=== PATIENT | female | born 1955 | race Caucasian/White ===

== ENCOUNTER 2017-04-21 06:57 | Inpatient (IN) | payer OTHER ==
[2017-04-21] MEDS ORDERED: NS 0.9% 1000 ML* 1,000 ML IV ONE (07:32)
[2017-04-21] MEDS ORDERED: Ondansetron INJ* 2 MG/ML VIAL IV ONE (07:32)
[2017-04-21] MEDS ORDERED: HYDROmorphone* 1 MG/ML 1 ML SYR IV ONE ×2 (07:32→11:07)
[2017-04-21 07:55] LABS: Hematocrit 31 % (35-47); Hemoglobin 10.2 g/dl (12.0-16.0); Mean Corpuscular HGB Conc 33 g/dl (31-36); Mean Corpuscular Hemoglobin 31 pg (27-31); Mean Corpuscular Volume 95 fL (80-97); Mean Platelet Volume 6 um3 (7.4-10.4); Red Blood Count 3.25 10^6/ul (4.0-5.4); Red Cell Distribution Width 14 % (10.5-15); White Blood Count 13.9 10^3/ul (3.5-10.8)
[2017-04-21 08:17] LABS: Albumin 2.3 g/dL (3.2-5.2); C Reactive Protein 163.69 mg/L (< 5.00); Calcium 7.9 mg/dL (8.6-10.3); EGFR African American 151.8 (>60); EGFR Non-African American 118.1 (>60); Globulin 4.8 g/dL (2-4); Potassium 3.5 mmol/L (3.5-5.0); Total Bilirubin 0.7 mg/dL (0.2-1.0); Total Protein 7.1 g/dL (6.4-8.9)
[2017-04-21 08:19] LABS: Troponin I 0.01 ng/mL (<0.04)
--- NOTE | 2017-04-21 09:02 | RAD ---
HISTORY: Cough COMPARISONS: March 31, 2017 VIEWS: 2: Frontal and lateral views of the chest. FINDINGS: CARDIOMEDIASTINAL SILHOUETTE: The cardiomediastinal silhouette is normal. Again noted is an esophageal stent. PIERRE: The pierre are normal. PLEURA: There is a small right pleural effusion. LUNG PARENCHYMA: The lungs are clear. ABDOMEN: The upper abdomen is clear. There is no subphrenic gas. BONES AND SOFT TISSUES: Mild degenerative changes are noted. OTHER: A right-sided chest port is noted with the tip overlying the cavoatrial junction. IMPRESSION: 1. SMALL RIGHT PLEURAL EFFUSION. 2. LINES AND TUBES ABOVE.
[2017-04-21] MEDS ORDERED: Iohexol 300* (CONTRAST) 10 ML SDV IV ONE (10:25)
--- NOTE | 2017-04-21 11:26 | RAD ---
Indication: Mid upper back pain. Contrast: 65 mL of Omnipaque 300 CT of the chest, abdomen and pelvis was performed after oral and IV contrast administration. Coronal and sagittal reconstructed images were obtained. Inferior thyroid lobes are unremarkable. Right-sided central line is in place. No mediastinal or hilar adenopathy is noted. Esophageal stent is in place. Heart demonstrates no pericardial effusion. Bilateral pleural effusions are present. The lung vogt demonstrate bibasilar atelectasis. Some scarring is noted in the anterior right upper lobe. No focal nodules are identified. There is compression fracture of the superior endplate of T2 with kyphosis deformity at T1-T2 which was not present on March 11, 2017. CT of the abdomen and pelvis demonstrates the liver to be normal in size. No focal lesions or intrahepatic ductal dilatation is noted. The gallbladder demonstrates no calcified gallstones. The pancreas demonstrates no mass or pancreatic duct dilatation. The common duct is not dilated. The spleen is normal in size. No adrenal lesions are noted. No dilated loops of bowel are noted. Atherosclerotic aorta is noted. Small bowel and colon are otherwise unremarkable. Trace amount of free fluid is noted in the pelvis. The urinary bladder is otherwise unremarkable. IMPRESSION: KYPHOSIS DEFORMITY AT T1-T2 WITH LIKELY COMPRESSION FRACTURE OF THE SUPERIOR ENDPLATE OF T2 WHICH WAS NOT PRESENT ON PRIOR EXAM. OSTEOPENIA IS NOTED. PATIENT STATUS POST ESOPHAGEAL STENT PLACEMENT. THERE IS BILATERAL PLEURAL EFFUSION WITH BIBASILAR ATELECTASIS NOTED. THE REMAINDER OF THE EXAM IS UNCHANGED FROM MARCH 11, 2017.
[2017-04-21] MEDS ORDERED: Polyethylene Glycol 3350* 17 GM PACKET PO PRN (11:44)
[2017-04-21] MEDS ORDERED: Ondansetron TAB* 4 MG PO PRN (11:44)
[2017-04-21] MEDS ORDERED: Zosyn per Pharmacy* NOTE FOLLOW UP SCH (12:00)
[2017-04-21 13:18] LABS: Urine Bacteria Absent (Absent); Urine Bilirubin Negative (Negative); Urine Glucose Negative (Negative); Urine Nitrite Negative (Negative)
[2017-04-21] MEDS ORDERED: fentaNYL PATCHs 100 MCG/HR TRANSDERM SCH (14:00)
--- NOTE | 2017-04-21 14:30 | ED ---
Chente King Benjamin, scribed for Juanjose Andrews MD on 04/21/17 at 0812 . Back Pain - HPI Summary HPI Summary: 61yo female with esophageal CA presents with chronic mid upper back pain that has gotten worse today. Pt has an esophageal stent placed in 1 year ago that was adjusted on 04/06 at [facility]. Since then, pt had been having pain in her shoulder blades that is now in mid upper back pain. Pt has been controlling her pain with morphine, Xanax, and fentanyl patch, but pain is now out of control. Pt was seen with Dr. Gong prior to adjustment, which CXR was negative. Pt also has an appointment with Dr. Gong later today. Pt also has been coughing up pink sputum. - History of Current Complaint Chief Complaint: EDBackInjuryPain Stated Complaint: BACK PAIN Time Seen by Provider: 04/21/17 07:20 Hx Obtained From: Patient, Family/Academic Support Director - daughter Onset/Duration: Gradual Onset, Lasting Weeks, Still Present, Worse Since - today Onset/Duration: Atraumatic, Still Present Timing: Constant Back Pain Location: Is Discrete @ - mid upper back Severity Initially: Moderate Severity Currently: Severe Pain Intensity: 10 Pain Scale Used: 0-10 Numeric Aggravating Symptom(s): Movement Alleviating Symptom(s): Nothing Associated Signs And Symptoms: Positive: Other - pink sputum - Allergies/Home Medications Allergies/Adverse Reactions: Allergies Allergy/AdvReac Type Severity Reaction Status Date / Time Hydrocodone Allergy Severe Nausea And Verified 04/21/17 07:11 Vomiting Oxycodone Allergy Severe Nausea And Verified 04/21/17 07:11 Vomiting Home Medications: Home Medications Fentynal Patch 100 mcg TRANSDERM SEE INSTRUCTIONS 04/21/17 [History Confirmed ] PMH/Surg Hx/FS Hx/Imm Hx Endocrine/Hematology History: Denies: Hx Diabetes, Hx Systemic Lupus Erythematosus Cardiovascular History: Reports: Other Cardiovascular Problems/Disorders - MEDIPORT PLACED AUG 2015 Denies: Hx Hypertension GI History: Reports: Hx Gastroesophageal Reflux Disease, Other GI Disorders - Esophogeal cancer History: Denies: Hx Dialysis, Hx Renal Disease Musculoskeletal History: Reports: Hx Back Problems - 20 years ago Denies: Hx Rheumatoid Arthritis Sensory History: Reports: Hx Contacts or Glasses Opthamlomology History: Reports: Hx Contacts or Glasses Psychiatric History: Reports: Hx Anxiety - Cancer History Cancer Type, Location and Year: Esophageal cancer 07/11 Hx Chemotherapy: Yes Hx Radiation Therapy: Yes Hx Palliative Cancer Treatment: No - Surgical History Surgery Procedure, Year, and Place: fallopian tubal ligation 1986. Esophageal stent placed - September 2015. PEG tube - August 2015 Hx Anesthesia Reactions: No Infectious Disease History: No Infectious Disease History: Denies: Traveled Outside the [place] in Last 30 Days - Family History Known Family History: Positive: Other - breast CA - Social History Occupation: Unemployed Lives: With Family Alcohol Use: Occasionally Alcohol Amount: "glass of wine here and there" Substance Use Type: Reports: Marijuana Hx Tobacco Use: Yes Smoking Status (MU): Former Smoker Type: Cigarettes Review of Systems Constitutional: Negative Eyes: Negative ENT: Negative Cardiovascular: Negative Positive: Cough - pink sputum Gastrointestinal: Negative Genitourinary: Negative Positive: Arthralgia - mid upper back pain Skin: Negative Neurological: Negative Psychological: Normal All Other Systems Reviewed And Are Negative: Yes Physical Exam Triage Information Reviewed: Yes Vital Signs On Initial Exam: Initial Vitals BP 144/96 04/21/17 07:08 Vital Signs Reviewed: Yes Appearance: Positive: Well-Appearing, Well-Nourished, Pain Distress - moderate Skin: Positive: Warm, Skin Color Reflects Adequate Perfusion, Dry Head/Face: Positive: Normal Head/Face Inspection Eyes: Positive: Normal ENT: Positive: Normal ENT inspection Neck: Positive: Supple, Nontender Respiratory/Lung Sounds: Positive: Other - diffuse crackles Cardiovascular: Positive: Tachycardia Abdomen Description: Positive: Nontender, Soft Bowel Sounds: Positive: Present Musculoskeletal: Positive: Normal, Strength/ROM Intact Neurological: Positive: Normal, Sensory/Motor Intact, Alert, Oriented to Person Place, Time, CN Intact II-III Psychiatric: Positive: Affect/Mood Appropriate - [place] Coma Scale Coma Scale Total: 15 Diagnostics - Vital Signs Vital Signs Temp Pulse Resp BP Pulse Ox 04/21/17 07:09 98.5 F 108 18 144/96 96 04/21/17 07:08 144/96 - Laboratory Lab Results: Lab Results 04/21/17 04/21/17 04/21/17 Range/Units 07:45 07:45 07:45 WBC 13.9 H (3.5-10.8) 10^3/ul RBC 3.25 L (4.0-5.4) 10^6/ul Hgb 10.2 L (12.0-16.0) g/dl Hct 31 L (35-47) % MCV 95 (80-97) fL MCH 31 (27-31) pg MCHC 33 (31-36) g/dl RDW 14 (10.5-15) % Plt Count 402 (150-450) 10^3/ul MPV 6 L (7.4-10.4) um3 Neut % (Auto) 90.8 H (38-83) % Lymph % (Auto) 3.9 L (25-47) % [place] % (Auto) 4.6 (1-9) % Eos % (Auto) 0.1 (0-6) % Baso % (Auto) 0.6 (0-2) % Absolute Neuts (auto) 12.7 H (1.5-7.7) 10^3/ul Absolute Lymphs (auto) 0.5 L (1.0-4.8) 10^3/ul Absolute Monos (auto) 0.6 (0-0.8) 10^3/ul Absolute Eos (auto) 0 (0-0.6) 10^3/ul Absolute Basos (auto) 0.1 (0-0.2) 10^3/ul Absolute Nucleated RBC 0 10^3/ul Nucleated RBC % 0 INR (Anticoag Therapy) 1.06 (0.89-1.11) Sodium 129 L (133-145) mmol/L Potassium 3.5 (3.5-5.0) mmol/L Chloride 96 L (101-111) mmol/L Carbon Dioxide 25 (22-32) mmol/L Anion Gap 8 (2-11) mmol/L BUN 9 (6-24) mg/dL Creatinine 0.53 (0.51-0.95) mg/dL Est GFR ( Amer) 151.8 (>60) Est GFR (Non-Af Amer) 118.1 (>60) BUN/Creatinine Ratio 17.0 (8-20) Glucose 135 H (70-100) mg/dL Calcium 7.9 L (8.6-10.3) mg/dL Total Bilirubin 0.70 (0.2-1.0) mg/dL AST 10 L (13-39) U/L ALT 7 (7-52) U/L Alkaline Phosphatase 110 H (34-104) U/L Troponin I 0.01 (<0.04) ng/mL C-Reactive Protein 163.69 H (< 5.00) mg/L Total Protein 7.1 (6.4-8.9) g/dL Albumin 2.3 L (3.2-5.2) g/dL Globulin 4.8 H (2-4) g/dL Albumin/Globulin Ratio 0.5 L (1-3) Result Diagrams: 04/21/17 07:45 04/21/17 07:45 Lab Statement: Any lab studies that have been ordered have been reviewed, and results considered in the medical decision making process. - Radiology CXR Xray Interpretation: Positive (See Comments) - small right pleural effusion Radiology Interpretation Completed By: Radiologist - CT CT C/A/P W CT Interpretation: Positive (See Comments) - IMPRESSION: KYPHOSIS DEFORMITY AT T1-T2 WITH LIKELY COMPRESSION FRACTURE OF THE SUPERIOR ENDPLATE OF T2 WHICH WAS NOT PRESENT ON PRIOR EXAM. OSTEOPENIA IS NOTED. PATIENT STATUS POST ESOPHAGEAL STENT PLACEMENT. THERE IS BILATERAL PLEURAL EFFUSION WITH BIBASILAR ATELECTASIS NOTED. THE REMAINDER OF THE EXAM IS UNCHANGED FROM MARCH 11, 2017. CT Interpretation Completed By: Radiologist Back Pain Course/Dx - Course Course Of Treatment: Discussed with Dr. Gong (oncology) at 0943. Assessment/Plan: Ms. Tirado presented with severe upper back pain for a few weeks but . She also has had a cough that has been W/U'd by Dr. Gong. She is now productive of blood tinged sputum. She was found to have a new pleural effusion and a new dorsal compression fracture. Dr. Gong has admitted her to the hospital. - Diagnoses Provider Diagnoses: Compression fracture of body of thoracic vertebra, Pleural effusion Discharge - Discharge Plan Condition: Stable Disposition: ADMITTED TO [facility] The documentation as recorded by the Chente garcia Benjamin accurately reflects the service I personally performed and the decisions made by me, Juanjose Andrews MD.
[2017-04-21] MEDS: NS 0.9% 1000 ML* 1,000 ML IV SCH (14:38)
[2017-04-21] MEDS: HYDROmorphone* 1 MG/ML 1 ML SYR IV SLOW PU PRN ×2 (15:45→19:54)
[2017-04-21] MEDS ORDERED: Senna TAB PO PRN (18:53)
[2017-04-21] MEDS: fentaNYL Patch Check Q Shift 1 NOTE SCH (19:34)
[2017-04-21] MEDS: ZOSYN 3.375 GM Q8H per EXTENDED INFUSION IVPB SCH ×2 (19:55)
--- NOTE | 2017-04-21 19:56 | RAD ---
INDICATION: Further characterize proximal thoracic spine fracture noted on April 21, 2017 CT chest. COMPARISON: April 21, [address] and March 11, [address] TECHNIQUE: Multidetector CT images foramen magnum to lung apices without contrast. Multiplanar reformation. REPORT: 1.5 mm degenerative C7-T1 anterolisthesis. Focal kyphosis at the proximal thoracic spine due to moderately severe impaction fracture involving the T1 and T2 vertebral bodies with complete obliteration of the intervening disc space new compared with the March 11, 2017 exam. Surrounding paravertebral soft tissue edema without change compared with the earlier exam of the same date however new compared with the March 11, 2017 exam. Foci of osteolysis at the costovertebral segments of the bilateral second ribs. The focal kyphosis and minimal dorsal protrusion of the superior endplate of T2 results in only mild impression on the ventral margin of the thecal sac. Assessment of the central canal contents is limited with CT particularly without IV contrast. Negative for additional thoracic spine or cervical spine fracture within the [id number]. Multilevel degenerative spondylosis with moderate C3-C4, moderate C4-C5, moderately severe C5-C6 and mild C6-C7 disc space narrowing as well as vertebral endplate osteophytosis and uncinate process spurring and facet joint osteoarthritis. At C3-C4 there is mild RIGHT foraminal stenosis. At C4-C5 there is moderate bilateral foraminal stenosis. At C5-C6 there is moderate bilateral foraminal stenosis. At C6-C7 there is mild bilateral foraminal stenosis. Esophageal stent in place with proximal margin at the level of the C7-T1. IMPRESSION: The constellation is of findings may represent osteomyelitis discitis at T1-T2 with associated paravertebral phlegmon. The differential also includes insufficiency fracture secondary to metastatic disease from esophageal cancer or insufficiency fracture secondary to prior radiation. Correlate with clinical assessment and inflammatory markers. Pre and postcontrast MRI may be helpful for further assessment. Results discussed with Dr. Olivas 04/21/2017 7:50 PM EDT
[2017-04-22] MEDS: HYDROmorphone* 1 MG/ML 1 ML SYR IV SLOW PU PRN ×4 (01:54→18:22)
[2017-04-22] MEDS: ZOSYN 3.375 GM Q8H per EXTENDED INFUSION IVPB SCH ×2 (03:58)
[2017-04-22] MEDS: ALPRAZolam TAB* 0.5 MG PO PRN ×3 (04:05→19:17)
[2017-04-22] MEDS ORDERED: HYDROmorphone* 2 MG/ML 1 ML SYR ONE (04:14)
[2017-04-22] MEDS: NS 0.9% 1000 ML* 1,000 ML IV SCH (04:58)
[2017-04-22] MEDS ORDERED: HYDROmorphone* 2 MG/ML 1 ML SYR IV ONE ×2 (05:00→05:20)
[2017-04-22] MEDS: fentaNYL Patch Check Q Shift 1 NOTE SCH (07:14)
[2017-04-22] MEDS ORDERED: Morphine INJ* 10 MG/ML 1 ML SYRINGE IV ONE (08:00)
[2017-04-22] MEDS ORDERED: Citalopram TAB* 20 MG PO SCH (09:00)
--- NOTE | 2017-04-22 09:40 | CONSULT ---
Consult Consult: Neurosurgery Consult Date of consult: 04/22/17 Reason for consult: T1 and T2 fractures Referring provider: MARQUEZ Masters HPI: This is a 61 year old female with past medical history significant for esophageal cancer who [place] [facility] with complaint of back pain. She states that she has been experiencing worsening mid to upper back pain for the past 2-3 weeks with radiation to the bilateral axilla and shoulders. She denies numbness, tingling or weakness of the upper extremities. She was initially able to control the pain with morphine that she takes at home but in the past few days, the pain has been uncontrolled. She also reports approximate 10 pound weight loss recently, chills and sputum production which has been blood tinged but is currently yellow colored. She denies fever, dizziness, headache, neck pain, chest pain, nausea, vomiting, diarrhea and incontinence. Past medical history: 1. Esophageal cancer 2. GERD Past surgical history: 1. Esophageal stent placement in September 2015 with revision on 04/06/17 in [place]. 2. PEG tube placement 08/2015 3. Tubal ligation Social history: She lives at home with her family. She is a former smoker and currently consumes occasional alcohol. Home medications: 1. ALPRAZolam TAB* [Xanax TAB*] 0.25 - 0.5 mg PO Q8H PRN 02/10/16 [History Confirmed 04/21/17] 2. Morphine ORAL CONCENTRATE* 40 mg PO Q6H 02/10/16 [History Confirmed 04/21/17] 3. Polyethylene Glycol 3350* [Miralax*] 17 gm PO EVERY OTHER DAY PRN #0 packet 02/21/16 [Rx Confirmed 04/21/17] 4. Lexapro 10 mg PO DAILY 06/17/16 [History Confirmed 04/21/17] 5. Ondansetron HCl [Zofran 4 MG TAB] 4 mg PO Q4H PRN 06/17/16 [History Confirmed 04/21/17] 6. Morphine ORAL CONCENTRATE* 40 mg PO Q4H PRN #180 oral.syrin MDD 240 mg [Rx Confirmed 04/21/17] 7. Fentynal Patch 100 mcg TRANSDERM SEE INSTRUCTIONS 04/21/17 [History Confirmed 04/21/17] Allergies: 1. Hydrocodone 2. Oxycodone ROS: Full ROS completed; pertinent findings stated in HPI and all others negative. Physical exam: Vital Signs: Temp Pulse Resp BP Pulse Ox 97.8 F 99 20 152/74 93 04/22/17 03:28 04/22/17 03:28 04/22/17 09:00 04/22/17 04:55 04/22/17 03:28 General: Alert and oriented. Laying in bed uncomfortably with significant pain. HEENT: Head is normocephalic and atraumatic. PERRL, EOMI, sclerae anicteric. Gross hearing intact. Moist mucus membranes. Neck: Supple, symmetric and nontender. CV: Radial pulses 2+ and equal. Pedal pulses palpable. Lungs: Breathing is nonlabored. Rhonchi bilaterally. Production of yellow colored sputum with cough. Abdomen: Normoactive bowel sounds. Abdomen is flat, nontender and nondistended. Neuro: Speech is clear and coherent. CN II-XII intact. Strength in bilateral upper extremities is 5/5. Sensation intact. Negative Hoffmans bilaterally. Extremities: Full ROM. No edema. Imagin. CT of the cervical spine on 04/21/17 shows fracture of T1 and T2. Assessment: This is a 61 year old female with history of esophageal cancer who presented with uncontrolled mid to upper back pain for the past 2-3 weeks. Fracture of T1 and T2 shown on CT cervical spine. Unable to determine etiology of the fractures. This case was discussed with Dr. Olivas and he has discussed with Dr. White. Plan: 1. Transfer to [facility] in [place] for further evaluation and higher level of care.
[2017-04-22] MEDS ORDERED: HYDROmorphone* 2 MG/ML 1 ML SYR IV SLOW PU ONE (09:55)
--- NOTE | 2017-04-22 09:55 | PN ---
Progress Note - Progress Note Date of Service: 04/22/17 SOAP: Subjective: severe pain this am. does not feel that the dilaudid is helping enough. she does report several 2-3 weeks of chills and anorexia with 10 pound weight loss and pain in her mid back that has worsened with time. no maddie fevers but did not take her temperature. no weakness or numbness of hands or feet, though she does have a weird sensation in both axilla. +cough (not new) but hurts her chest to cough. Objective: Vital Signs Temp Pulse Resp BP Pulse Ox 97.8 F 99 20 152/74 93 04/22/17 03:28 04/22/17 03:28 04/22/17 09:00 04/22/17 04:55 04/22/17 03:28 uncomfortable appearing lying at a 30 degree angle diffuse rhonchi (upper airway sounds) s1 s2 nl soft nt +bs no le edema did not ambulate but strength grossly intact skin intact port clean no adenopathy A+O x 3 Laboratory Tests 04/21/17 04/21/17 04/21/17 07:45 07:45 07:45 WBC 13.9 H RBC 3.25 L Hgb 10.2 L Hct 31 L MCV 95 MCH 31 MCHC 33 RDW 14 Plt Count 402 MPV 6 L Neut % (Auto) 90.8 H Lymph % (Auto) 3.9 L [place] % (Auto) 4.6 Eos % (Auto) 0.1 Baso % (Auto) 0.6 Absolute Neuts (auto) 12.7 H Absolute Lymphs (auto) 0.5 L Absolute Monos (auto) 0.6 Absolute Eos (auto) 0 Absolute Basos (auto) 0.1 Absolute Nucleated RBC 0 Nucleated RBC % 0 INR (Anticoag Therapy) 1.06 Sodium 129 L Potassium 3.5 Chloride 96 L Carbon Dioxide 25 Anion Gap 8 BUN 9 Creatinine 0.53 Est GFR ( Amer) 151.8 Est GFR (Non-Af Amer) 118.1 BUN/Creatinine Ratio 17.0 Glucose 135 H Lactic Acid Calcium 7.9 L Total Bilirubin 0.70 AST 10 L ALT 7 Alkaline Phosphatase 110 H Troponin I 0.01 C-Reactive Protein 163.69 H Total Protein 7.1 Albumin 2.3 L Globulin 4.8 H Albumin/Globulin Ratio 0.5 L Urine Color Urine Appearance Urine pH Ur Specific [place] Urine Protein Urine Ketones Urine Blood Urine Nitrate Urine Bilirubin Urine Urobilinogen Ur Leukocyte Esterase Urine WBC (Auto) Urine RBC (Auto) Ur Squamous Epith Cells Urine Bacteria Urine Glucose 04/21/17 04/21/17 13:00 13:22 WBC RBC Hgb Hct MCV MCH MCHC RDW Plt Count MPV Neut % (Auto) Lymph % (Auto) [place] % (Auto) Eos % (Auto) Baso % (Auto) Absolute Neuts (auto) Absolute Lymphs (auto) Absolute Monos (auto) Absolute Eos (auto) Absolute Basos (auto) Absolute Nucleated RBC Nucleated RBC % INR (Anticoag Therapy) Sodium Potassium Chloride Carbon Dioxide Anion Gap BUN Creatinine Est GFR ( Amer) Est GFR (Non-Af Amer) BUN/Creatinine Ratio Glucose Lactic Acid 1.0 Calcium Total Bilirubin AST ALT Alkaline Phosphatase Troponin I C-Reactive Protein Total Protein Albumin Globulin Albumin/Globulin Ratio Urine Color Yellow Urine Appearance Clear Urine pH 6.0 Ur Specific [place] 1.041 H Urine Protein Negative Urine Ketones 1+ H Urine Blood Negative Urine Nitrate Negative Urine Bilirubin Negative Urine Urobilinogen Positive H Ur Leukocyte Esterase 1+ H Urine WBC (Auto) Trace(0-5/hpf) Urine RBC (Auto) Trace(0-2/hpf) Ur Squamous Epith Cells Present H Urine Bacteria Absent Urine Glucose Negative Alprazolam (Xanax Tab*) 0.5 mg PO Q8H PRN PRN Reason: ANXIETY Last Admin: 04/22/17 04:05 Dose: 0.5 mg Citalopram Hydrobromide (Celexa Tab*) 20 mg PO DAILY [facility] Last Admin: 04/22/17 09:01 Dose: 20 mg Fentanyl (Duragesic Patch 100 Mcg/Hr *) 100 mcg TRANSDERM Q72H [facility] Last Admin: 04/21/17 14:26 Dose: 100 mcg Heparin Sodium (Porcine) (Heparin Flush Port ([place])) 5 ml FLUSH DAILY [facility] PRN Reason: Protocol Last Admin: 04/22/17 09:54 Dose: Not Given Hydromorphone HCl (Dilaudid Iv*) 1 mg IV SLOW PU Q4H PRN PRN Reason: PAIN Last Admin: 04/22/17 09:00 Dose: 1 mg Sodium Chloride (Ns 0.9% 1000 Ml*) 1,000 mls @ 75 mls/hr IV PER RATE [facility] Last Admin: 04/22/17 04:58 Dose: 75 mls/hr Ondansetron HCl (Zofran Tab*) 4 mg PO Q4H PRN PRN Reason: NAUSEA Last Admin: 04/22/17 09:01 Dose: 4 mg Pharmacy Consult (Zosyn Per Pharmacy*) 1 note FOLLOW UP .ZOSYN PER PHARMACY [facility] Pharmacy Profile Note (Fentanyl Patch Check Q Shift) 1 note N/A 0700,1900 [facility] Last Admin: 04/22/17 07:14 Dose: 1 note Polyethylene Glycol/Electrolytes (Miralax*) 17 gm PO EVERY OTHER DAY PRN PRN Reason: CONSTIPATION Last Admin: 04/21/17 14:45 Dose: 17 gm Senna (Senokot Tab*) 1 tab PO DAILY PRN PRN Reason: CONSTIPATION Last Admin: 04/21/17 19:55 Dose: 1 tab Assessment: 61 yo F w PMH of locally advanced esophageal CA sp chemRT in Late 2014/early 2015 without any evidence of recurrence to date, but with course complicated by esophageal strictures requiring stent placement x 3, most recently on 04/[address] Wright, now with chills, anorexia and severe back pain with CT concerning for possible osteomyelitis/discitis with resultant fracture of T1 and T2, but also on the DDx including insufficiency fracture and tumor. She has been seen by neurosurgery here and in speaking with Dr. Olivas he has recommended transfer to a higher level of care for possible surgery. I have spoken with Dr. Wright who has agreed and will work on transfer from his end. Plan: MRI stat with and without contrast cervical and thoracic spine repeat CBC, CRP, ESR ID consult (spoke with Dr. Vega) will hold off on Abx pending MRI cont dilaudid with bowel regimen will add DVT prophylaxis after determined if she needs biopsy in next 24 hrs.
[2017-04-22 09:58] LABS: Hematocrit 32 % (35-47); Hemoglobin 10.7 g/dl (12.0-16.0); Mean Corpuscular HGB Conc 33 g/dl (31-36); Mean Corpuscular Hemoglobin 31 pg (27-31); Mean Corpuscular Volume 94 fL (80-97); Mean Platelet Volume 6 um3 (7.4-10.4); Red Blood Count 3.45 10^6/ul (4.0-5.4); Red Cell Distribution Width 14 % (10.5-15); White Blood Count 12.7 10^3/ul (3.5-10.8)
[2017-04-22] MEDS ORDERED: ALPRAZolam TAB* 0.5 MG PO ONE (10:00)
[2017-04-22 10:13] LABS: Albumin 2.3 g/dL (3.2-5.2); Calcium 7.7 mg/dL (8.6-10.3); EGFR African American 178.8 (>60); Globulin 4.7 g/dL (2-4); Potassium 3.3 mmol/L (3.5-5.0); Total Bilirubin 0.8 mg/dL (0.2-1.0)
[2017-04-22 11:54] LABS: Erythrocyte Sed Rate 88 mm/Hr (0-30)
[2017-04-22] MEDS: KCL 20 MEQ/100 ML IVPREMIX* 20 MEQ/100 ML BAG IV SCH ×3 (11:59→17:31)
--- NOTE | 2017-04-22 12:02 | CONS ---
CONSULTATION REPORT: DATE OF CONSULT: 04/22/17 REQUESTING PHYSICIAN: Dr. White. CONSULTING SERVICE: Infectious Disease. REASON FOR CONSULT: Neck pain and C-spine lesion on the CAT scan. IMPRESSION: 1. Three weeks of neck pain without neurologic deficit, but she reports or on exam and a CT scan that shows impaction fracture on T1-T2 vertebral bodies with obliteration of intervening disk space, new compared to 03/11/17. There was surrounding paravertebral soft tissue edema. The differential diagnosis includes infectious etiologies including a bacterial vertebral osteodiscitis, paravertebral muscle abscess or phlegmon and epidural abscess, though at this point, no evidence of cord compression on exam. Maybe non-infectious including malignant or degenerative. 2. Esophageal cancer, squamous cell carcinoma, treated with chemotherapy; esophageal stricture, treated with esophageal stenting, multiple, most recently March 2017, but does raise the question of extension of an infectious process from esophagus to the adjacent vertebral bodies. 3. Anxiety. 4. Elevated C-reactive protein. RECOMMENDATION: Hold off on antibiotics. MRI with and without gadolinium to further define the spinal process while awaiting acceptance to [facility]. Based on the MRI results, will need to determine whether it is infectious or malignant and biopsy by Interventional Radiology or Neurosurgery will be consideration. HISTORY OF PRESENT ILLNESS: This is a 61-year-old woman with a history of esophageal cancer with 3 weeks of neck pain and chills. The pain is always present, worse with movement of her neck. She has no numbness, weakness in her arms or legs and no bowel or bladder dysfunction. She has occasional chills, mildly decreased appetite over the last, probably 10 days. She had had no fevers or drenching sweats that she knows of. She had an esophageal stent changed out in [place] by [facility] in March. She thinks the pain came before the stent was placed. Her swallowing is okay; it is better than it has been in the past. She does not think it is totally normal. She has no other prosthetic material present other than a right chest port. PAST MEDICAL HISTORY: 1. Esophageal cancer, treated with chemotherapy and radiation therapy in the past. 2. Esophageal stricture with multiple stents. 3. Anxiety. 4. Gastroesophageal reflux disease. 5. History of aspiration pneumonia. 6. History of C. diff infection. MEDICATIONS: 1. Celexa. 2. Heparin flush with port. 3. Hydromorphone. 4. Zofran p.r.n. 5. Zosyn 3.375 g. 6. Fentanyl patch. ALLERGIES: HYDROCODONE, OXYCODONE. FAMILY HISTORY: No recurrent infections. SOCIAL HISTORY: She lives outside of [place]. Past smoker. No injection drugs. REVIEW OF SYSTEMS: All negative except as noted above. PHYSICAL EXAM: Vital Signs: Temperature 36, heart rate 90, respiratory rate 18 , blood pressure 138/81, oxygen saturation 99% on room air. General: She is awake. She appears anxious, not in distress. Neurologic: She is oriented x3. Follows all commands. Moves all extremities. Strength is 5/5 in the biceps, triceps, wrist flexors, extensors, quadriceps, tibialis anterior, gastrocnemius bilaterally. There is no lower extremity clonus bilaterally. The sensation is intact to light touch in the upper and lower extremities bilaterally. HEENT: There is no conjunctival hemorrhage. Oropharynx without lesions. Neck is supple. There is no mass. Heart has regular rate and rhythm without murmurs, rubs, or gallops. Lungs are clear to auscultation bilaterally. Abdomen: Soft , nontender, and nondistended. Bowel sounds are present. Skin: There is no rash or splinter hemorrhages. Musculoskeletal: There is mild cervical tenderness and spine tenderness to palpation. There is no other joint synovitis. There is a right chest port with access. LABORATORY DATA: White blood cell count 12, down from 13 compared to 5 on 03/19; hemoglobin is 10.7; platelets are 432. Blood cultures are negative 24 hours. Urinalysis showed ketones, urobilinogen, leukocyte esterase. Cultures pending. Please see impressions and recommendations outlined above, which I have discussed with Dr. White. Thank you for asking me to see Ms. Tirado in consultation. [id number]/[facility] #: [id number] SASHA
--- NOTE | 2017-04-22 12:35 | RAD ---
HISTORY: Pain, discitis/osteomyelitis COMPARISONS: CT of the cervical spine dated April 21, 2017 TECHNIQUE: The following sequences were obtained of the cervical and thoracic spine: Sagittal T1 and T2-weighted images, sagittal STIR images, coronal T2-weighted images of the cervical spine, and gradient echo images of the cervical spine, and axial T2-weighted images. . FINDINGS: The study is limited by patient motion artifact. Evaluation is also limited by lack of intravenous contrast. According to the technologist notes, the patient was unable to tolerate further imaging Localization is based on counting from C2 SPINAL CORD, CONUS, AND CAUDA EQUINA: The visualized spinal cord, conus, and cauda equina are normal in caliber, position, and signal intensity. ALIGNMENT: There is focal kyphosis at T1-T2. VERTEBRAL BODIES: There is loss of vertebral body heights with edema of T1 and T2. There is multilevel anterolateral marginal osteophyte formation. JOINTS: There is diffuse uncovertebral and facet osteoarthritic change. There is osteoarthritis of the costovertebral articulations. MUSCULATURE: Multiple INTERVERTEBRAL DISCS: There is diffuse loss of intervertebral disc height and T2 signal throughout the spine. AXIAL IMAGES: Evaluation limited secondary to motion artifact. There is severe narrowing of the central canal at T1-T2, with focal thickening of the posterior longitudinal ligament at this level with a questionable small epidural fluid collection. There is moderate narrowing of the central canal at C3-C4, C4-C5, C5-C6, and C6-C7 SOFT TISSUES: There is abnormal soft tissue in the paravertebral soft tissue opposite of T1-T2, extending into the neural foramina. OTHER: None. IMPRESSION: 1. LIMITED STUDY. 2. THERE IS BONE EDEMA AND ABNORMAL PARAVERTEBRAL SOFT TISSUES CENTERED AT T1-T2. THERE IS ASSOCIATED SEVERE NARROWING OF THE CENTRAL CANAL WITH THICKENING OF THE POSTERIOR LONGITUDINAL LIGAMENT AND A QUESTIONABLE EPIDURAL FLUID COLLECTION. THE APPEARANCE IS MOST SUGGESTIVE OF METASTATIC DISEASE GIVEN THE HISTORY OF ESOPHAGEAL CANCER AND THE AMOUNT OF ABNORMAL PARAVERTEBRAL SOFT TISSUE; HOWEVER, OSTEOMYELITIS DISCITIS IS WITHIN THE DIFFERENTIAL. 3. DEGENERATIVE DISC DISEASE AND OSTEOARTHRITIS RESULTING IN MODERATE NARROWING OF THE CENTRAL CANAL AND C3-C4 INFERIORLY THROUGH C6-C7. PRELIMINARY FINDINGS WERE DISCUSSED WITH DR. PRATER AT APPROXIMATELY 12:32 PM ON APRIL 22, 2017.
[2017-04-22] MEDS: HYDROmorphone* 2 MG/ML 1 ML SYR IV SLOW PU PRN ×3 (14:47→19:16)
[2017-04-22] MEDS ORDERED: HYDROmorphone* 1 MG/ML 1 ML SYR IV ONE (19:00)
[2017-04-22 19:56] VITALS: BP 119/87
--- NOTE | 2017-04-23 16:38 | DS ---
DISCHARGE SUMMARY/TRANSFER SUMMARY: DATE OF ADMISSION: 04/21/17 DATE OF DISCHARGE: 04/22/17 ATTENDING PHYSICIAN: Dr. Felicity White * (DICTATED BY MARQUEZ MILLIGAN) This transfer summary is for Dr. Felicity White. The patient will need a transfer to a higher level of care as per the request of Dr. Felicity White to Dr. Harper as per their conversation. PRINCIPAL DIAGNOSES: Include, 1. Compression fracture T1-2, question osteomyelitis versus progression of her disease. 2. History of esophageal cancer with no specific progression of her disease noted on radiologic testing dated 04/21/17. TRANSFER MEDICATIONS: Will include, 1. Xanax 0.5 mg p.o. q.8 hours p.r.n. anxiety. 2. Celexa 20 mg p.o. daily. 3. Fentanyl patch 100 mcg patch topically every 72 hours. 4. Dilaudid 2 mg IV push every 2 hours as needed for pain. 5. Ondansetron 4 mg every 4 hours as needed for nausea. 6. Zosyn 3.375 g q.8 hours intravenous. 7. MiraLAX 17 g p.o. daily p.r.n. constipation. 8. She currently has an IV of normal saline with 20 mEq of potassium chloride, going at 75 mL/hour. 9. Senokot 1 tab p.o. daily as needed for constipation. HOSPITAL COURSE: The patient was ambulance transferred to the emergency room yesterday on 04/22/17 with severe pain between the shoulder blades and the upper neck. She had recently had an esophageal stent placed on 04/07/17 in [place] and since that time, approximately 2 to 3 weeks the patient had experienced severe pain in the upper neck and between the shoulder blades. She denied any specific neurological loss or neuro-focal loss other than severe pain. She has had a 2 to 3 week history of chills and anorexia and a 10-pound weight loss. However, she has had chronic malnutrition in the past secondary to her esophageal stricture. A CT chest, abdomen and pelvis was performed during her hospital admission and found to have a new compression fracture of T1 -2 including disks which queried whether this was a possible progression of her disease/osteomyelitis/diskitis resulting in a T1- 2 fracture or progression of her disease. Neurosurgery was consulted by Dr. Olivas who had recommended that she be transferred to a higher level of care for possible surgery and Dr. Harper was called immediately. [facility] has offered a bed. There were STAT MRIs with and without contrast of the cervical and thoracic spine, those discs are currently being burned so that they can transfer with the patient. Infectious Disease was also consulted with Dr. Stuart Vega who had recommended that the patient stay on Zosyn coverage every 8 hours for the time being. Her pain control has been insufficient and she has required additional doses of Dilaudid IV at 2 mg which has been escalated from 1 mg with adequate control of her coverage. She will be DVT prophylaxed until after she has had her biopsy within the next 24 hours, however, she remains off any DVT prophylaxis currently. The patient's vital signs at 15:18 remains stable with blood pressure of 116/74 , oxygen saturation of 99% on room air, respiratory rate of 16, pulse rate of 102, temperature of 97.8. She has been ramos cultured with blood cultures x2 which were no growth till date. Her current labs include a white blood cell count of 12.7, hemoglobin 10.7, hematocrit 32, platelet count of 432, absolute neutrophil count of 11.4 without a significant shift differential, however, sed rate is 88 and high. Chemistries include, sodium of 126, potassium which is being repleted at 3.3, chloride 95, carbon dioxide 23, creatinine 0.46, glucose 152, lactic acid drawn at 13:22 on 04/21/17 at 1.0, calcium 7.7. Transaminases and total bilirubin within normal limits. Alkaline phosphatase 103, C-reactive protein 173.59, albumin 2.3. The INR on 04/21/17 at 1.06. Urine sample was positive for urobilinogen, 1+ ketones, there were no white blood cells, red blood cells or bacteria identified on the urine sample. The patient will be transferred to the [facility] this evening. If there are any specific questions regarding this patient's care, Dr. Felicity White is credit administration officer to night and can be reached by either pager or phone through the [facility] System. MARQUEZ MILLIGAN [id number]/[facility] #: [id number] SASHA
== END 2017-04-22 19:40 | disposition short-term general hospital (02) | DRG 344 ==
LOC: ED 06:57 → MED 11:39
PROVIDERS: ADMIT Internal Medicine Hematology & Oncology; ATTEND Internal Medicine Hematology & Oncology
DX: M86.9 Osteomyelitis, unspecified (principal); M48.54XA Collapsed vertebra, not elsewhere classified, thoracic region, initial encounter for fracture; E46 Unspecified protein-calorie malnutrition; R13.10 Dysphagia, unspecified; K22.2 Esophageal obstruction; Z93.1 Gastrostomy status; Z68.1 Body mass index [BMI] 19.9 or less, adult; F41.9 Anxiety disorder, unspecified; K21.9 Gastro-esophageal reflux disease without esophagitis; R40.2412 Glasgow coma scale score 13-15, at arrival to emergency department; Z72.89 Other problems related to lifestyle; Z80.1 Family history of malignant neoplasm of trachea, bronchus and lung; Z80.3 Family history of malignant neoplasm of breast; Z80.8 Family history of malignant neoplasm of other organs or systems; Z98.51 Tubal ligation status; Z88.5 Allergy status to narcotic agent; Z85.01 Personal history of malignant neoplasm of esophagus; Z92.21 Personal history of antineoplastic chemotherapy; Z92.3 Personal history of irradiation; Z87.891 Personal history of nicotine dependence
CPT/HCPCS: 36415; 71020; 71260; 72125; 72141; 72146; 74177; 80053; 81003; 81015; 83605; 84484; 85025; 85610; 85652; 86140; 86141; 87040; 87086; 99222; 99239; A9270-GY; J1170; J1642; J2270; J2405; J2543; J3480; Q9967